=== PATIENT | male | born 1965 | race Caucasian/White ===

== ENCOUNTER → 2016-07-31 | Outpatient (CLI) | payer OTHER ==
--- NOTE | 2016-07-31 15:23 | DX ---
PA and Lateral Chest History: Chronic cough x3 months in a 51-year-old male; comparison prior study November 18, 2011. Findings: The heart and mediastinal contours are normal. Pulmonary vascularity is normal. There is c entral peribronchial thickening which is more prominent than on the prior study. There are no alveola r opacities seen to suggest pneumonia. Impression: Findings consistent with bronchitis are noted with no superimposed pneumonia identified. A preliminary report was called to the patient's healthcare provider.
== END ==
LOC: BMCIMAGING 14:47
PROVIDERS: ATTEND Nurse Practitioner Adult Health
DX: J98.4 Other disorders of lung (principal)

== ENCOUNTER → 2017-07-08 | Outpatient (CLI) | payer OTHER | LOC: FIMAGING 17:34 → EDSTATUS 17:35 | PROVIDERS: ATTEND Internal Medicine | DX: J20.9 Acute bronchitis, unspecified (principal) ==